=== PATIENT | male | born 1965 | race Caucasian/White ===

== ENCOUNTER 2021-09-06 06:37 | Emergency (ER) | payer BC ==
[~2021-09-06] VITALS: Ht 180.3 cm; Wt 145.1 kg
[2021-09-06] MEDS ORDERED: KETOROLAC TROMETHAMINE 30 MG/ML VIAL IV STA (07:40)
[2021-09-06] MEDS ORDERED: KETOROLAC TROMETHAMINE 60 MG/2 ML VIAL ONE (08:17)
[2021-09-06] MEDS ORDERED: PREDNISONE20 MG PO (08:54)
[2021-09-06] MEDS ORDERED: METFORMIN HCL500 MG PO (08:54)
[2021-09-06] MEDS ORDERED: NAPROSYN500 MG PO (08:55)
[2021-09-06] MEDS ORDERED: ULTRAM 50MG50 MG PO (08:56)
== END 2021-09-06 09:40 | disposition home or self-care (01) ==
LOC: FSED 07:12
DX: M25.561 Pain in right knee (principal); M10.9 Gout, unspecified; R73.9 Hyperglycemia, unspecified; I10 Essential (primary) hypertension; E66.01 Morbid (severe) obesity due to excess calories
CPT/HCPCS: 73562; 80053; 81003; 85025; 99284; J1885